=== PATIENT | male | born 1970 | race Caucasian/White ===

== ENCOUNTER → 2016-08-10 | Outpatient (CLI) | payer BC ==
--- NOTE | 2016-08-10 17:49 | US ---
EXAMINATION TYPE: US scrotum with doppler. Grayscale and color Doppler Duplex imaging performed of t crystal scrotum. DATE OF EXAM: 08/10/2016 COMPARISON: NONE CLINICAL HISTORY: N50.811 Right Testicular Pain. right testicle edema, history of varicocele EXAM MEASUREMENTS: TESTICLES: Right Testicle: 4.2 x 2.2 x 2.7 cm Left Testicle: 4.2 x 2.2 x 3.4 cm EPIDIDYMIS HEAD: Right Epididymis: 1.4 cm Left Epididymis: 0.9 cm Doppler performed to assess for testicular vascularity; good bilateral color flow and waveforms are s een. There is no evidence of testicular torsion. Presence of hydroceles: small fluid collection inferior to right testicle = 1.7cm Presence of varicoceles: bilaterally, left greater than right IMPRESSION: There are bilateral varicoceles noted and more noticeable on the left side compared to th e right. There is a small right-sided hydrocele. No evidence of testicular torsion or mass.
== END | disposition home or self-care (01) ==
LOC: RADUSWWP 16:52
PROVIDERS: ATTEND Family Medicine
DX: I86.1 Scrotal varices (principal); N43.3 Hydrocele, unspecified
CPT/HCPCS: 76870; 93975